=== PATIENT | male | born 1940 | race Caucasian/White ===

== ENCOUNTER 2020-03-10 09:40 | Day surgery (SDC) | payer MEDICARE, SELFPAY ==
[2020-03-07 09:26] VITALS: BMI 25.9
--- NOTE | 2020-03-09 12:10 | P.CONAN_ITS ---
Documented by User: Lillian Walker 03/09/20 12:11 HPI - Anesthesia Eval Consult details Narrative: 79yo M for Colonoscopy [facility] Past Medical History Medical History (Updated 03/07/20 @ 09:23 by Angela Jameson) HTN (hypertension) Surgical History Surgical History (Updated 03/07/20 @ 09:23 by Angela Jameson) History of bunionectomy History of carpal tunnel surgery of left wrist History of left inguinal hernia repair Hx of colonoscopy S/P surgical removal of pilonidal cyst Social History Social History Advance Directives: No Advance Directives Information Provided: No Advance Directives on File: No Meds Allergies Allergy/AdvReac Type Severity Reaction Status Date / Time No Known Allergies Allergy Verified 03/10/20 09:47 Home Medications Medication Instructions Recorded Confirmed Type ascorbic acid (vitamin C) [Vitamin 500 mg PO BID 03/07/20 03/07/20 History C] lisinopril 40 mg PO DAILY 03/07/20 03/07/20 History metoprolol tartrate 25 mg PO BID 03/07/20 03/10/20 History multivitamin 1 tab PO DAILY 03/07/20 03/07/20 History nifedipine 30 mg PO DAILY 03/07/20 03/07/20 History Exam Exam Date and Time: March 09, 2020 1210 Height,Weight and Vital Signs: Height 5 ft 6 in Weight 73.028 kg Assessment and Plan Assessment Anesthesia Assessment: Chart Reviewed Documented by User: Patricia Treviño 03/10/20 11:50 [facility] Past Medical History Medical History (Updated 03/07/20 @ 09:23 by Angela Jameson) HTN (hypertension) Surgical History Surgical History (Updated 03/07/20 @ 09:23 by Angela Jameson) History of bunionectomy History of carpal tunnel surgery of left wrist History of left inguinal hernia repair Hx of colonoscopy S/P surgical removal of pilonidal cyst Social History Social History Advance Directives: No Advance Directives Information Provided: No Advance Directives on File: No Meds Allergies Allergy/AdvReac Type Severity Reaction Status Date / Time No Known Allergies Allergy Verified 03/10/20 09:47 Home Medications Medication Instructions Recorded Confirmed Type ascorbic acid (vitamin C) [Vitamin 500 mg PO BID 03/07/20 03/07/20 History C] lisinopril 40 mg PO DAILY 03/07/20 03/07/20 History metoprolol tartrate 25 mg PO BID 03/07/20 03/10/20 History multivitamin 1 tab PO DAILY 03/07/20 03/07/20 History nifedipine 30 mg PO DAILY 03/07/20 03/07/20 History Exam Pertinent Lab Results Pertinent Lab Results: ecg in preop holding unchanged from 12/2019 Airway Mallampati Class: II TM Dist: >3cm Neck ROM: Full Heart: RRR Lungs: CTA BL Assessment and Plan Assessment Anesthesia Assessment: Anesthesia Plan Discussed and Chart Reviewed Final Anesthetic Review NPO: Yes (Sip water with meds) ASA Class: III Final Preanesthetic Review: Meds/Allgs Chart Reviewed and Consent Obtained/Reviewed Patient Risk: Intermediate Procedure Risk: Intermediate Anesthetic Plan Anesthetic Plan: MAC: Disposition: Standard PACU
--- NOTE | 2020-03-10 | ECG_ITS ---
Test Reason : T WAVE INV Blood Pressure : / mmHG Vent. Rate : 071 BPM Atrial Rate : 071 BPM P-R Int : 172 ms QRS Dur : 082 ms QT Int : 402 ms P-R-T Axes : 055 -24 042 degrees QTc Int : 436 ms Normal sinus rhythm Normal ECG No previous ECGs available Referred By: Patricia Treviño Electronically Signed By:GUERRERO KIRBY MD
[2020-03-10] MEDS: Lactated Ringers 1,000 ML 100 ML IVCONT (10:04)
[2020-03-10 12:33] VITALS: BP 105/60; PULSE 57; RESP 16; TEMP 36.8; O2SAT 99
--- NOTE | 2020-03-10 12:33 | PM.OP ---
Brief Operative Note Date of Service: 03/10/20 Pre-op diagnosis: + Cologuard test Post-op diagnosis: other (Same, diverticulosis, internal hemorrhoids) Procedure: Colonoscopy to the cecum Surgeon: Olayinka Juárez Anesthesia: MAC Estimated blood loss (mL): 0 Pathology: none sent Condition: stable Disposition: PACU
[2020-03-10 12:47] VITALS: BP 114/70; PULSE 56; RESP 18; O2SAT 95
--- NOTE | 2020-03-10 13:22 | HO.POSTANES ---
Post Anesthesia Evaluation Post Anesthesia Evaluation Vital Signs: Vital Signs Temp Pulse Resp BP Pulse Ox 03/10/20 12:47 56 18 114/70 95 03/10/20 12:33 98.3 F 57 16 105/60 99 Anesthesia: Monitored Mental Status: Awake Pain Control: Satisfactory Nausea/Vomiting: None Hydration: Adequate Anesthesia-Related Issues: No Anes. Related Issues
--- NOTE | 2020-03-10 14:47 | OP_ITS ---
SURGEON: Olayinka Juárez MD INDICATIONS: The patient presents for evaluation of a positive Cologuard test. Full consent has been obtained from him for this, including risks of bleeding and perforation. PREOPERATIVE DIAGNOSIS: Positive Cologuard test. POSTOPERATIVE DIAGNOSIS: PROCEDURE PERFORMED: Colonoscopy to cecum. ESTIMATED BLOOD LOSS: COMPLICATIONS: ANESTHESIA: Monitored anesthesia care. ASSISTANTS: SPECIMENS: POSTOPERATIVE DIAGNOSES: Positive Cologuard test, sigmoid diverticulosis and internal hemorrhoids. DESCRIPTION OF PROCEDURE: The patient was placed in the left lateral decubitus position. The digital rectal exam revealed no abnormalities. The Olympus video pediatric colonoscope was entered into the rectum and advanced easily to the cecum. Once in the cecum, I did identify normal-appearing cecal pouch with appendiceal orifice and a normal-appearing ileocecal valve. There was transillumination of light deep in the right lower quadrant. The entire cecum was well visualized and appeared normal. The scope was slowly withdrawn assessing all mucosal surfaces carefully. Preparation was excellent. I did not visualize any sign of polyps, colitis, nor angiodysplasia. There was a mild amount of sigmoid diverticulosis. In the rectum, scope was retroflexed visualizing small internal hemorrhoids, but no other pathology. The rectal mucosa appeared normal. The scope was straightened out and withdrawn from the patient. He tolerated the procedure well and was returned to the recovery area in stable condition. IMPRESSION: 1. Sigmoid diverticulosis. 2. Internal hemorrhoids. PLAN: Given the negative exam and his age, I do not think he will need any further screening colonoscopies in the future. He will otherwise see me on a p.r.n. basis. Olayinka Juárez MD RMElissa/[id number] / [id number]
== END 2020-03-10 13:23 | disposition home or self-care (01) ==
PROVIDERS: PCP Internal Medicine; Visit Provider Internal Medicine
PROC: 0DJD8ZZ Inspection of Lower Intestinal Tract, Via Natural or Artificial Opening Endoscopic (ICD-10-PCS; CPT 45378; principal; 2020-03-10 11:20)
DX: R19.5 Other fecal abnormalities (principal); K57.30 Diverticulosis of large intestine without perforation or abscess without bleeding; K64.8 Other hemorrhoids; Z86.010 Personal history of colon polyps; I10 Essential (primary) hypertension; Z79.899 Other long term (current) drug therapy
CPT/HCPCS: 45378; 93005